=== PATIENT | female | born 1995 | race African-American/Black ===

== ENCOUNTER 2018-01-23 12:52 | Emergency (ER) | payer SELFPAY ==
[~2018-01-23] VITALS: Ht 160 cm; Wt 60.0 kg
[2018-01-23 12:57] VITALS: BP 120/79
== END 2018-01-23 14:00 | disposition home or self-care (01) ==
LOC: ER 13:33
DX: S16.1XXA Strain of muscle, fascia and tendon at neck level, initial encounter (principal); V43.52XA Car driver injured in collision with other type car in traffic accident, initial encounter; Y93.89 Activity, other specified; Y92.89 Other specified places as the place of occurrence of the external cause; Y99.8 Other external cause status
CPT/HCPCS: 81025; 99282